=== PATIENT | female | born 1940 | race Caucasian/White ===

== ENCOUNTER 2021-12-09 15:15 | Inpatient (IN) | payer MEDICARE, OTHER ==
[~2021-12-09] VITALS: Ht 154.9 cm; Wt 76.2 kg
[~2021-12-09 15:15] MED LIST: ASPIRIN EC81 MG PO; BENTYL10 MG PO; CALCIUM + VITA1 EACH PO; COLACE100 MG PO; GLUCOSAMINE HC500 MG PO; HCTZ25 MG PO; NORCO 5-325 TA1 EAC1 PO; NORCO 5-325 TA1 EACH PO; ULTRA-LIGHT RO1 EACH XX; VASOTEC10 MG PO
[2021-12-09 16:46] LABS: INFLUENZA A NAA NEGATIVE (NEGATIVE)
[2021-12-09 16:49] LABS: CORONAVIRUS 2019 SARS-COV-2 POSITIVE (NEGATIVE)
[2021-12-09 17:33] LABS: BASOPHIL 0.2 % (0-2); EOSINOPHIL 0 % (0-7); HCT 40.4 % (37.0-47.0); HGB 13.4 g/dl (12.5-16.0); LYMPHOCYTE 3.5 % (15-48); MCH 30.4 pg (25.0-31.0); MCHC 33.2 g/dL (32.0-36.0); MCV 91.6 fL (78.0-100.0); MONOCYTE 3.5 % (0-12); MPV 10.2 fL (6.0-9.5); NRBC 0; PLT 242 K/uL (150-400); RBC 4.41 M/uL (4.20-5.40); RDW 14.9 % (11.5-14.0); WBC 18.8 K/uL (4.0-10.5)
[2021-12-09 17:34] LABS: NEUTROPHIL 92.2 % (41-80)
[2021-12-09 17:44] LABS: INR 1.16 (0.9-1.2); PROTHROMBIN TIME 14.2 SECONDS (11.8-13.4); PTT 29.2 SECONDS (24.4-34.7)
[2021-12-09 18:01] LABS: LACTIC ACID 1.3 mmol/L (0.4-1.9)
[2021-12-09 18:03] LABS: ALBUMIN 3.9 g/dL (3.4-5.0); BILIRUBIN - TOTAL 0.4 mg/dL (0.2-1.0); BUN/CREAT RATIO (CALC) 26.2 RATIO; CREATININE 0.61 mg/dL (0.51-0.95); POTASSIUM 3.6 mmol/L (3.5-5.1); TOTAL PROTEIN 7.9 g/dL (6.4-8.2)
[2021-12-10] MEDS ORDERED: VASOTEC10 MG PO (00:42)
[2021-12-10] MEDS ORDERED: SEROQUEL 25MG T25 MG PO (00:43)
[2021-12-10] MEDS ORDERED: REMERON15 MG PO (00:45)
[2021-12-10] MEDS ORDERED: UROCIT-K10 MEQ PO (00:47)
[2021-12-10] MEDS ORDERED: LASIX40 MG PO (00:48)
[2021-12-10] MEDS ORDERED: VIBRAMYCIN100 MG PO (00:51)
[2021-12-10] MEDS ORDERED: VENTOLIN (2.5 MG/3 M INH (00:54)
[2021-12-10] MEDS ORDERED: OS-CAL500 MG PO (00:55)
[2021-12-10 06:38] LABS: BASOPHIL 0.2 % (0-2); EOSINOPHIL 0 % (0-7); HCT 37.2 % (37.0-47.0); HGB 12.1 g/dl (12.5-16.0); LYMPHOCYTE 8.3 % (15-48); MCH 30.4 pg (25.0-31.0); MCHC 32.5 g/dL (32.0-36.0); MCV 93.5 fL (78.0-100.0); MONOCYTE 5.2 % (0-12); MPV 10.5 fL (6.0-9.5); NEUTROPHIL 85.6 % (41-80); NRBC 0; PLT 218 K/uL (150-400); RBC 3.98 M/uL (4.20-5.40); RDW 14.9 % (11.5-14.0); WBC 16.6 K/uL (4.0-10.5)
[2021-12-10 07:32] LABS: BUN/CREAT RATIO (CALC) 36.7 RATIO; C-REACTIVE PROTEIN 8.1 mg/dL (<=0.90); CREATININE 0.6 mg/dL (0.51-0.95); POTASSIUM 4.1 mmol/L (3.5-5.1)
[2021-12-11 03:56] LABS: BILIRUBIN NEGATIVE (NEGATIVE); BLOOD NEGATIVE Ery/uL (NEGATIVE); CLARITY CLEAR (CLEAR); COLOR YELLOW (YELLOW); GLUCOSE (U) NORMAL (NORMAL); LEUKOCYTES NEGATIVE Leu/uL (NEGATIVE); NITRITE NEGATIVE (NEGATIVE); PROTEIN NEGATIVE (NEGATIVE); SPECIFIC GRAVITY 1.015 (1.001-1.030); UROBILINOGEN 0.2 mg/dL (0.2-1.0)
[2021-12-11 04:09] LABS: BACTERIA TRACE
[2021-12-11 06:17] LABS: BASOPHIL 0.2 % (0-2); EOSINOPHIL 0.1 % (0-7); HGB 11.6 g/dl (12.5-16.0); LYMPHOCYTE 15.2 % (15-48); MCH 30.4 pg (25.0-31.0); MCHC 32.2 g/dL (32.0-36.0); MCV 94.2 fL (78.0-100.0); MONOCYTE 7.3 % (0-12); MPV 10.5 fL (6.0-9.5); NEUTROPHIL 76.7 % (41-80); NRBC 0; PLT 215 K/uL (150-400); RBC 3.82 M/uL (4.20-5.40); RDW 15.2 % (11.5-14.0); WBC 17.1 K/uL (4.0-10.5)
[2021-12-11 06:59] LABS: BUN/CREAT RATIO (CALC) 34.2 RATIO; C-REACTIVE PROTEIN 5.6 mg/dL (<=0.90); CREATININE 0.73 mg/dL (0.51-0.95); POTASSIUM 4.5 mmol/L (3.5-5.1)
[2021-12-12 07:11] LABS: BASOPHIL 0.3 % (0-2); EOSINOPHIL 0.1 % (0-7); HCT 37.8 % (37.0-47.0); MCH 30.2 pg (25.0-31.0); MCHC 31.7 g/dL (32.0-36.0); MONOCYTE 7.6 % (0-12); MPV 10.4 fL (6.0-9.5); NRBC 0; PLT 224 K/uL (150-400); RBC 3.98 M/uL (4.20-5.40); RDW 15.4 % (11.5-14.0); WBC 15.3 K/uL (4.0-10.5)
[2021-12-12 07:47] LABS: BUN/CREAT RATIO (CALC) 33.8 RATIO; CREATININE 0.65 mg/dL (0.51-0.95); MAGNESIUM 2.4 mg/dL (1.8-2.4); POTASSIUM 3.8 mmol/L (3.5-5.1)
[2021-12-13 07:00] LABS: BASOPHIL 0.3 % (0-2); EOSINOPHIL 0.3 % (0-7); HCT 33.8 % (37.0-47.0); HGB 10.8 g/dl (12.5-16.0); LYMPHOCYTE 21.9 % (15-48); MCH 30.3 pg (25.0-31.0); MCV 94.9 fL (78.0-100.0); MONOCYTE 8.5 % (0-12); MPV 10.4 fL (6.0-9.5); NEUTROPHIL 67.7 % (41-80); NRBC 0; PLT 200 K/uL (150-400); RBC 3.56 M/uL (4.20-5.40); RDW 15.3 % (11.5-14.0); WBC 14.3 K/uL (4.0-10.5)
[2021-12-14 06:26] LABS: BASOPHIL 0.4 % (0-2); EOSINOPHIL 0.7 % (0-7); HGB 11.9 g/dl (12.5-16.0); LYMPHOCYTE 26.2 % (15-48); MCH 30.2 pg (25.0-31.0); MCHC 32.2 g/dL (32.0-36.0); MCV 93.9 fL (78.0-100.0); MONOCYTE 8.4 % (0-12); MPV 10.6 fL (6.0-9.5); NEUTROPHIL 62.4 % (41-80); NRBC 0; PLT 241 K/uL (150-400); RBC 3.94 M/uL (4.20-5.40); RDW 15.1 % (11.5-14.0); WBC 12.7 K/uL (4.0-10.5)
[2021-12-14 06:55] LABS: BUN/CREAT RATIO (CALC) 32.4 RATIO; CREATININE 0.74 mg/dL (0.51-0.95)
--- NOTE | 2021-12-14 10:00 | NUR ---
12/14/21 A referral was made to [facility] per family request.
[2021-12-14] MEDS ORDERED: VENTOLIN HFA IN18 GM INH ×2 (10:11→10:22)
[2021-12-14] MEDS ORDERED: DEXAMETHASONE 2M2 MG PO ×2 (10:11→10:22)
[2021-12-14] MEDS ORDERED: DULERA 200 MCG8.8 GM INH ×2 (10:11→10:22)
== END 2021-12-14 12:50 | disposition home health service (06) | DRG 871 ==
LOC: FER 15:15 → FMS 19:35
PROVIDERS: Emergency Medicine; Nurse Practitioner Acute Care; ADMIT Internal Medicine
PROC: XW033E5 Introduction of Remdesivir Anti-infective into Peripheral Vein, Percutaneous Approach, New Technology Group 5 (ICD-10-PCS; principal; 2021-12-09)
PROC: 3E0333Z Introduction of Anti-inflammatory into Peripheral Vein, Percutaneous Approach (ICD-10-PCS; 2021-12-09)
PROC: 3E03329 Introduction of Other Anti-infective into Peripheral Vein, Percutaneous Approach (ICD-10-PCS; 2021-12-09)
PROC: 8E0ZXY6 Isolation (ICD-10-PCS; 2021-12-09)
PROC: B24BZZZ Ultrasonography of Heart with Aorta (ICD-10-PCS; 2021-12-12)
DX: A41.89 Other specified sepsis (principal); U07.1 COVID-19; J12.82 Pneumonia due to coronavirus disease 2019; J96.01 Acute respiratory failure with hypoxia; I50.23 Acute on chronic systolic (congestive) heart failure; J15.9 Unspecified bacterial pneumonia; E87.2 Acidosis; R65.20 Severe sepsis without septic shock; Z66 Do not resuscitate; I95.9 Hypotension, unspecified; I34.0 Nonrheumatic mitral (valve) insufficiency; I27.20 Pulmonary hypertension, unspecified; I11.0 Hypertensive heart disease with heart failure; K44.9 Diaphragmatic hernia without obstruction or gangrene; G47.33 Obstructive sleep apnea (adult) (pediatric); Z96.652 Presence of left artificial knee joint; E66.9 Obesity, unspecified; Z90.710 Acquired absence of both cervix and uterus; Z68.31 Body mass index [BMI] 31.0-31.9, adult; Z99.81 Dependence on supplemental oxygen; Z90.49 Acquired absence of other specified parts of digestive tract
CPT/HCPCS: 36415; 36600; 71045; 71275; 80048; 80053; 81001; 82728; 82803; 83605; 83735; 83880; 84145; 85025; 85610; 85730; 86140; 87040; 93005; 94640; 94667; 94668; 94760; 94762; C9399; J0456; J0696; J1100; J1650; J1940; J7040; J7050; Q9967; U0002